=== PATIENT | female | born 1945 | race Caucasian/White ===

== ENCOUNTER 2018-06-24 13:39 | Emergency (ER) | payer MEDICARE ==
[2018-06-24 14:44] LABS: Absolute Lymphocytes (CBC) 0.6 K/uL (0.7-4.9); Absolute Monocytes 0.6 K/uL (0.1-1.3); Absolute Neutrophil 9.1 K/uL (1.8-8.0); Basophils % 0.4 % (0-1.3); Eosinophils % 0.1 % (0-4.4); Hematocrit 36.5 % (36.0-45.0); Lymphocytes % 5.6 % (15.3-44.8); MPV 9.8 fL (7.6-11.3); Monocytes % 5.9 % (3.3-12.3); RBC Red Blood Cell Count 4.09 M/uL (3.86-4.86)
[2018-06-24] MEDS ORDERED: PANTOPRAZOLE 40 MG INJ ONE (14:48)
[2018-06-24] MEDS ORDERED: WATER FOR INJ,STERILE 20 ML ONE (14:48)
[2018-06-24 14:51] LABS: Albumin 4.1 g/dL (3.4-5.0); Bilirubin Total 0.6 mg/dL (0.2-1.0); Potassium 3.8 mmol/L (3.5-5.1); Protein, Total 6.9 g/dL (6.4-8.2)
[2018-06-24 14:53] LABS: Protime INR 0.94
[2018-06-24 15:19] LABS: Blood Morphology Comment NOT SEEN (NOT SEEN); Platelet Estimate ADEQ; Urine White Blood Cell Casts OK
--- NOTE | 2018-06-24 16:04 | RAD REPORT ---
EXAM DESCRIPTION: CT - Abdomen Pelvis W/Wo Contrast - 06/24/2018 3:36 pm CLINICAL HISTORY: Abdominal pain/hematochezia COMPARISON: October 2017 TECHNIQUE: Computed axial tomography of the abdomen and pelvis was obtained. Unenhanced and enhanced images were taken. 100 cc Isovue 300 was administered intravenously. Images were obtained in arteria l, venous and delayed phases. Coronal reconstruction was performed. Oral contrast was not requested w hich limits evaluation bowel All CT scans are performed using dose optimization technique as appropriate and may include automated exposure control or mA/KV adjustment according to patient size. FINDINGS: Liver, spleen and adrenals appear unremarkable. Small renal cysts. Borderline dilatation of the common bile duct. Pancreatic duct is mildly dilated. A pancreatic mass i s not visualized. Marked thickening of the wall of the distal transverse colon, descending colon, sigmoid colon and rec rose. Stranding is seen within the adjacent fat. Diverticulosis is noted. Pneumatosis intestinalis is not seen. Normal appendix IMPRESSION: Marked distal transverse, descending and sigmoid colitis. Rectum is also involved. Borderline dilatation of the common bile duct. Mild dilatation of the pancreatic duct. ERCP is recomm ended
[2018-06-24] MEDS ORDERED: CIPROFLOXACIN 400mg IV 400 MG/200 ML BAG IV ONE (16:22)
[2018-06-24] MEDS ORDERED: METRONIDAZOLE 500mg IVPB 500 MG/100 ML BAG IV ONE (16:22)
--- NOTE | 2018-06-24 17:47 | RAD REPORT ---
EXAM DESCRIPTION: US - Abdomen Exam Limited - 06/24/2018 5:28 pm CLINICAL HISTORY: Abdominal pain. COMPARISON: June 24, 2018 cat scan FINDINGS: The gallbladder wall is not thickened. A gallstone is not seen. Common bile duct measures 9 millimeters. The pancreatic duct is dilated. An obvious pancreatic mass i s not seen. IMPRESSION: Unremarkable gallbladder ultrasound. Dilatation of the common bile duct and pancreatic duct. ERCP recommended to evaluate for a potential small periampullary mass
--- NOTE | 2018-06-24 18:33 | ER ---
Nurse's Notes [facility] Name: Eli Melton Age: 73 yrs Sex: Female : 1945 Arrival Date: 06/24/2018 Time: 13:43 Bed 23 Private MD: None, None Diagnosis: Dilated common bile duct;Dilated Pancreatic duct;Roth colitis;Need for ERCP Presentation: 06/24 13:47 Presenting complaint: Patient states: Woke up this morning with severe abd pain and had la1 an episode of diarrhea and got diaphoretic, I went back to bed and then had a few more similar episodes and I started seeing bright red blood in my stool. Pt reports taking immodium at home and also that she had a gastric ulcer that was dx in the end of 2018. Transition of care: patient was not received from another setting of care. Onset of symptoms was June 24, 2018. Risk Assessment: Do you want to hurt yourself or someone else? Patient reports no desire to harm self or others. Initial Sepsis Screen: Does the patient meet any 2 criteria? No. Patient's initial sepsis screen is negative. Does the patient have a suspected source of infection? No. Patient's initial sepsis screen is negative. Care prior to arrival: None. 13:47 Method Of Arrival: Ambulatory la1 13:47 Acuity: SKYLER 3 la1 Historical: - Allergies: 13:50 Sulfa (Sulfonamide Antibiotics); la1 - PMHx: 13:50 Hypertension; High Cholesterol; palpitations; la1 - Immunization history:: Adult Immunizations up to date. - Social history:: Smoking status: Patient/guardian denies using tobacco. - Ebola Screening: : No symptoms or risks identified at this time. Screenin:52 Abuse screen: Denies threats or abuse. Denies injuries from another. Nutritional ca1 screening: No deficits noted. Tuberculosis screening: No symptoms or risk factors identified. Fall Risk None identified. Assessment: 13:52 General: Appears in no apparent distress. comfortable, Behavior is calm, cooperative, ca1 appropriate for age. Pain: Complains of pain in right lower quadrant and left lower quadrant Pain does not radiate. Pain currently is 7 out of 10 on a pain scale. Pain began 12 hours ago Is continuous. Neuro: Level of Consciousness is awake, alert, obeys commands, Oriented to person, place, time, situation. Cardiovascular: Heart tones S1 S2 present Capillary refill < 3 seconds Patient's skin is warm and dry. Respiratory: Airway is patent Respiratory effort is even, unlabored, Respiratory pattern is regular, symmetrical, Breath sounds are clear bilaterally. GI: Abdomen is round non-distended, Bowel sounds present X 4 quads. Abdomen is tender to palpation in right lower quadrant and left lower quadrant Reports diarrhea, bloody stool. : No deficits noted. No signs and/or symptoms were reported regarding the genitourinary system. EENT: No deficits noted. No signs and/or symptoms were reported regarding the EENT system. Derm: Skin is intact, is healthy with good turgor, Skin is pink, warm \T\ dry. Musculoskeletal: Circulation, motion, and sensation intact. Capillary refill < 3 seconds. 14:30 Reassessment: Pt went to rest room, instructed pt to poop and wipe and see if there is ca1 blood. Saw blood on wipes, informed Dr. Bird. 15:00 Reassessment: Patient appears in no apparent distress at this time. Patient and/or ca1 family updated on plan of care and expected duration. Pain level reassessed. Patient is alert, oriented x 3, equal unlabored respirations, skin warm/dry/pink. 15:42 Reassessment: Patient appears in no apparent distress at this time. Patient is alert, ca1 oriented x 3, equal unlabored respirations, skin warm/dry/pink. Pt from Radiology. 16:20 Reassessment: Patient appears in no apparent distress at this time. Patient is alert, ca1 oriented x 3, equal unlabored respirations, skin warm/dry/pink. Pt went to restroom. Reports blood with BM still. 17:15 Reassessment: Patient appears in no apparent distress at this time. Patient is alert, ca1 oriented x 3, equal unlabored respirations, skin warm/dry/pink. 18:29 Reassessment: Patient appears in no apparent distress at this time. Patient and/or ca1 family updated on plan of care and expected duration. Pain level reassessed. Patient is alert, oriented x 3, equal unlabored respirations, skin warm/dry/pink. 18:48 Reassessment: Called for report. Instructed to call back after shift change at 1920. ca1 Given direct line [phone]. 19:22 Reassessment: Called for report. Receiving nurse receiving another report. Will call ca1 back. 19:26 Reassessment: Patient appears in no apparent distress at this time. Patient is alert, ca1 oriented x 3, equal unlabored respirations, skin warm/dry/pink. Patient states feeling better. 19:52 Reassessment: Called report to Faviola Latham RN at [facility]. ca1 20:29 Reassessment: Pt complains of pain, informed Dr. Ramsey with VO carried out. ca1 20:32 Reassessment: Patient appears in no apparent distress at this time. Patient is alert, ca1 oriented x 3, equal unlabored respirations, skin warm/dry/pink. Awaiting transport. Vital Signs: 13:50 Pulse 100; Resp 16; Temp 98.3; Pulse Ox 98% on R/A; Weight 63.5 kg; Height 4 ft. 11 in. la1 (149.86 cm); Pain 7/10; 13:51 BP 158 / 97; la1 14:30 BP 164 / 81; Pulse 90; Resp 17 S; Pulse Ox 100% on R/A; ca1 15:00 BP 165 / 84; Pulse 80; Resp 17 S; Pulse Ox 96% on R/A; ca1 15:43 BP 157 / 85; Pulse 91; Resp 17 S; Pulse Ox 100% on R/A; ca1 16:20 BP 157 / 85; Pulse 88; Resp 17 S; Pulse Ox 100% on R/A; ca1 17:30 BP 169 / 93; Pulse 88; Resp 17 S; Pulse Ox 98% on R/A; ca1 18:30 BP 168 / 88; Pulse 85; Resp 17 S; Pulse Ox 100% on R/A; ca1 19:30 BP 169 / 84; Pulse 88; Resp 17 S; Pulse Ox 99% on R/A; ca1 20:30 BP 155 / 80; Pulse 87; Resp 18 S; Pulse Ox 100% on R/A; ca1 13:50 Body Mass Index 28.28 (63.50 kg, 149.86 cm) la1 ED Course: 13:43 Patient arrived in ED. mr 13:43 None, None is Private Physician. mr 13:49 Triage completed. la1 13:49 Arm band placed on right wrist. la1 13:51 Sofie Bradford, RN is Primary Nurse. ca1 13:52 Patient has correct armband on for positive identification. Placed in gown. Bed in low ca1 position. Call light in reach. Side rails up X 1. Pulse ox on. NIBP on. Warm blanket given. 13:56 Luis Eduardo Bird MD is Attending Physician. ps1 14:09 Radiology exam delayed due to lab results not completed at this time. (BUN/Creatinine). vm2 14:20 Initial lab(s) drawn, by me, sent to lab. T\T\S collected, blood band applied to patient. jp3 Inserted saline lock: 20 gauge in right antecubital area, using aseptic technique. Blood collected. 14:28 Ptt, Activated Sent. jp3 14:28 PT-INR Sent. jp3 14:28 CMP Sent. jp3 14:28 Lipase Sent. jp3 14:28 CBC with Diff Sent. jp3 15:36 CT completed. Patient tolerated procedure well. Patient moved back from CT. bq 15:37 CT Abd/Pelvis- W/WO Contrast In Process Unspecified. EDMS 16:56 Ultrasound completed. Patient tolerated well. sg3 17:28 US Abdomen Limited In Process Unspecified. EDMS 18:10 initiated a transfer with Sadie at the [facility] transfer center. eb 19:56 No provider procedures requiring assistance completed. Patient transferred, IV remains ca1 in place. Administered Medications: 14:40 Drug: ProTONIX 80 mg Route: IVP; Site: right antecubital; ca1 18:08 Follow up: Response: No adverse reaction; Pain is decreased ca1 15:00 Drug: Ciprofloxacin 400 mg Volume: 200 ml; Route: IVPB; Infused Over: 60 mins; Site: ca1 right antecubital; 18:28 Follow up: IV Status: Completed infusion ca1 16:10 Drug: Flagyl 500 mg Volume: 100 ml; Route: IVPB; Rate: 200 ml/hr; Infused Over: 30 ca1 mins; Site: right antecubital; 17:00 Follow up: Response: No adverse reaction; IV Status: Completed infusion ca1 18:38 Drug: Zofran 4 mg Route: IVP; Site: right antecubital; ca1 19:28 Follow up: Response: No adverse reaction; Nausea is decreased ca1 18:40 Drug: morphine 4 mg Route: IVP; Site: right antecubital; ca1 19:28 Follow up: Response: No adverse reaction; Pain is decreased ca1 20:15 Follow up: Response: No adverse reaction; Pain is unchanged, physician notified ca1 20:31 Drug: morphine 4 mg Route: IVP; Site: right antecubital; ca1 20:47 Follow up: Response: No adverse reaction; Pain is decreased ca1 Outcome: 18:31 ER care complete, transfer ordered by . ps1 20:46 Transferred by ground EMS to [facility], Transfer form completed. ca1 X-rays sent w/ patient. 20:46 Condition: stable 20:46 Instructed on the need for transfer. 20:49 Patient left the ED. ca1 Signatures: Dispatcher [employer] EDMS AdonayClari mr MarylinNelly Lee, RN RN Padmini Gaytan2 Luis Eduardo Bird MD MD ps1 Jose, Darcy hernandez3 Radha Thomas Jacob jp3 Sofie Bradford, RN RN ca1 Corrections: (The following items were deleted from the chart) 19:26 18:29 Reassessment: Patient appears in no apparent distress at this time. ca1 ca1
--- NOTE | 2018-06-24 18:33 | EDPHYS ---
Physician Documentation [facility] Name: Eli Melton Age: 73 yrs Sex: Female : 1945 Arrival Date: 06/24/2018 Time: 13:43 Bed 23 Private MD: None, None ED Physician Luis Eduardo Bird HPI: 06/24 14:18 This 73 yrs old Female presents to ER via Ambulatory with complaints of ps1 Rectal Bleeding, Abdominal Pain. 14:18 patient with known peptic ulcer disease that was diagnosed by EGD in Nov last year ps1 presenting with abdominal pain and BRBPR. Pain rated as moderate and with reported distention. Additionally has hx of msk pain that is on gabapentin, norco, muscle relaxer. States that she does not like taking those medications and will take excedrin. She states that she realizes that it has large amounts of aspirin. . Historical: - Allergies: 13:50 Sulfa (Sulfonamide Antibiotics); la1 - PMHx: 13:50 Hypertension; High Cholesterol; palpitations; la1 - Immunization history:: Adult Immunizations up to date. - Social history:: Smoking status: Patient/guardian denies using tobacco. - Ebola Screening: : No symptoms or risks identified at this time. ROS: 14:18 Constitutional: Negative for fever, chills, and weight loss, Eyes: Negative for injury, ps1 pain, redness, and discharge, Cardiovascular: Negative for chest pain, palpitations, and edema, Respiratory: Negative for shortness of breath, cough, wheezing, and pleuritic chest pain, Back: Negative for injury and pain, MS/Extremity: Negative for injury and deformity, Skin: Negative for injury, rash, and discoloration, Neuro: Negative for headache, weakness, numbness, tingling, and seizure. 14:18 Abdomen/GI: Positive for abdominal pain, rectal bleeding. Exam: 14:18 Constitutional: This is a well developed, well nourished patient who is awake, alert, ps1 and in no acute distress. Head/Face: Normocephalic, atraumatic. Chest/axilla: Normal chest wall appearance and motion. Nontender with no deformity. No lesions are appreciated. Cardiovascular: Regular rate and rhythm. No gallops, murmurs, or rubs. Normal PMI, no JVD. No pulse deficits. Respiratory: Lungs have equal breath sounds bilaterally, clear to auscultation and percussion. No rales, rhonchi or wheezes noted. No increased work of breathing, no retractions or nasal flaring. MS/ Extremity: Pulses equal, no cyanosis. Neurovascular intact. Full, normal range of motion. Neuro: Awake and alert, GCS 15, oriented to person, place, time, and situation. Cranial nerves II-XII grossly intact. Sensory grossly intact. 14:18 Abdomen/GI: Inspection: distension, that is mild, Bowel sounds: normal, Palpation: moderate abdominal tenderness, in the right lower quadrant and left lower quadrant, Rectal exam: Stool: guaiac positive. Vital Signs: 13:50 Pulse 100; Resp 16; Temp 98.3; Pulse Ox 98% on R/A; Weight 63.5 kg; Height 4 ft. 11 in. la1 (149.86 cm); Pain 7/10; 13:51 BP 158 / 97; la1 14:30 BP 164 / 81; Pulse 90; Resp 17 S; Pulse Ox 100% on R/A; ca1 15:00 BP 165 / 84; Pulse 80; Resp 17 S; Pulse Ox 96% on R/A; ca1 15:43 BP 157 / 85; Pulse 91; Resp 17 S; Pulse Ox 100% on R/A; ca1 16:20 BP 157 / 85; Pulse 88; Resp 17 S; Pulse Ox 100% on R/A; ca1 17:30 BP 169 / 93; Pulse 88; Resp 17 S; Pulse Ox 98% on R/A; ca1 18:30 BP 168 / 88; Pulse 85; Resp 17 S; Pulse Ox 100% on R/A; ca1 19:30 BP 169 / 84; Pulse 88; Resp 17 S; Pulse Ox 99% on R/A; ca1 20:30 BP 155 / 80; Pulse 87; Resp 18 S; Pulse Ox 100% on R/A; ca1 13:50 Body Mass Index 28.28 (63.50 kg, 149.86 cm) la1 MDM: 14:24 Patient medically screened. ps1 18:32 Data reviewed: vital signs, nurses notes, lab test result(s), radiologic studies, and ps1 as a result, I will transfer patient to [facility]. Counseling: I had a detailed discussion with the patient and/or guardian regarding: the historical points, exam findings, and any diagnostic results supporting the discharge/admit diagnosis, the need to transfer to another facility, for higher level of care, for ERCP. 06/24 13:57 Order name: CBC with Diff; Complete Time: 15:20 ps1 06/24 13:57 Order name: Lipase; Complete Time: 15:04 ps1 06/24 13:57 Order name: CMP; Complete Time: 15:04 ps1 06/24 13:57 Order name: PT-INR; Complete Time: 15:04 ps1 06/24 13:57 Order name: Ptt, Activated; Complete Time: 15:04 ps1 06/24 14:46 Order name: CBC Smear Scan; Complete Time: 15:20 EDMS 06/24 13:57 Order name: CT Abd/Pelvis- W/WO Contrast; Complete Time: 16:05 ps1 06/24 16:12 Order name: US Abdomen Limited; Complete Time: 18:07 ps1 06/24 13:57 Order name: IV Saline Lock; Complete Time: 14:20 ps1 06/24 13:57 Order name: Labs collected and sent; Complete Time: 14:20 ps1 Administered Medications: 14:40 Drug: ProTONIX 80 mg Route: IVP; Site: right antecubital; ca1 18:08 Follow up: Response: No adverse reaction; Pain is decreased ca1 15:00 Drug: Ciprofloxacin 400 mg Volume: 200 ml; Route: IVPB; Infused Over: 60 mins; Site: ca1 right antecubital; 18:28 Follow up: IV Status: Completed infusion ca1 16:10 Drug: Flagyl 500 mg Volume: 100 ml; Route: IVPB; Rate: 200 ml/hr; Infused Over: 30 ca1 mins; Site: right antecubital; 17:00 Follow up: Response: No adverse reaction; IV Status: Completed infusion ca1 18:38 Drug: Zofran 4 mg Route: IVP; Site: right antecubital; ca1 19:28 Follow up: Response: No adverse reaction; Nausea is decreased ca1 18:40 Drug: morphine 4 mg Route: IVP; Site: right antecubital; ca1 19:28 Follow up: Response: No adverse reaction; Pain is decreased ca1 20:15 Follow up: Response: No adverse reaction; Pain is unchanged, physician notified ca1 20:31 Drug: morphine 4 mg Route: IVP; Site: right antecubital; ca1 20:47 Follow up: Response: No adverse reaction; Pain is decreased ca1 Disposition: 06/24/18 18:31 Transfer ordered to [facility]. Diagnosis are Roth colitis, Dilated common bile duct, Dilated Pancreatic duct, Need for ERCP. - Reason for transfer: Higher level of care. - Accepting physician is Tony. - Condition is Stable. - Problem is new. - Symptoms have improved. Signatures: Dispatcher [employer] EDMS Krishna Sahu RN RN la1 Luis Eduardo Bird MD MD ps1 Sofie Bradford RN RN ca1 Corrections: (The following items were deleted from the chart) 16:07 14:18 Abdomen/GI: Inspection: distension, that is mild, Bowel sounds: normal, ps1 Palpation: moderate abdominal tenderness, in the right lower quadrant and left lower quadrant, Rectal exam: ps1 18:57 18:31 06/24/2018 18:31 Transfer ordered to [facility]. Diagnosis is ps1 Roth colitisDilated common bile duct; Dilated Pancreatic duct; Need for ERCP. Reason for transfer: Higher level of care. Accepting physician is Olinda. Condition is Stable. Problem is new. Symptoms have improved. ps1 20:49 18:57 06/24/2018 18:31 Transfer ordered to [facility]. Diagnosis is ca1 Roth colitisDilated common bile duct; Dilated Pancreatic duct; Need for ERCP. Reason for transfer: Higher level of care. Accepting physician is Tony. Condition is Stable. Problem is new. Symptoms have improved. ps1
[2018-06-24] MEDS ORDERED: MORPHINE 4 MG/ML SYR ONE ×2 (18:44→20:40)
[2018-06-24] MEDS ORDERED: ONDANSETRON 4 MG/2 ML VIAL ONE (18:44)
== END 2018-06-24 20:49 | disposition short-term general hospital (02) ==
LOC: ER 13:39
DX: K52.9 Noninfective gastroenteritis and colitis, unspecified (principal); K62.89 Other specified diseases of anus and rectum; K83.8 Other specified diseases of biliary tract; K86.89 Other specified diseases of pancreas
CPT/HCPCS: 96365; 85025; 36415; 85610; 85730; 83690; 80053; 74178; 76705; 96375; 99285; 96366; Q9967; C9113; J2405; J0744